=== PATIENT | female | born 1945 | race Hispanic/Latino ===

== ENCOUNTER 2016-06-28 11:48 | Day surgery (SDC) | payer MEDICARE, BC ==
[2016-06-24 13:03] VITALS: BMI 33.7
[2016-06-28 12:33] VITALS: TEMP 97.8
--- NOTE | 2016-06-28 12:38 | CP.SDSHP ---
Same Day Surgery H & P - History Proposed Procedure: thyroid Bx. Pre-Op Diagnosis: thyroid nodule. - Previous Medical/Surgical History Cardiac: Hypertension, Arrhythmia Pulmonary: Asthma Endocrine/Metabolic: Thyroid Disease, Diabetes, Obesity Pain: 0. No Pain Previous Surgical History: left knee replacement.hystrectomy,colonoscopy,bx thyroid nodule. - Allergies Allergies: Allergies diphenhydramine HCl [From Benadryl] Allergy (Verified 09/17/15 20:55) RASH - Physical Exam General Appearance: wnl. Vital Signs: Vital Signs 06/28/16 12:10 Temperature 97.8 F Pulse Rate 80 Respiratory 18 Rate Blood Pressure 174/72 H O2 Sat by Pulse 97 Oximetry Mental Status: Alert & Oriented x3 Neuro: WNL Heart: WNL Lungs: WNL GI: WNL - {Optional Preform as Required} Other Pertinent Findings: hyperlipidemia.dvt.sleep apnea. - Impression Impression: thyroid nodule. - Date & Time Date: 06/28/16 Time: 12:37 Short Stay Discharge - Short Stay Discharge Admitting Diagnosis/Reason for Visit: THYROID NODULE E04.9 Disposition: HOME/ ROUTINE Referrals: Dennis Deal MD [Primary Care Provider] -
[2016-06-28 12:43] LABS: ADD MANUAL DIFF? NO
[2016-06-28 12:45] LABS: BASO # 0.01 K/mm3 (0.0-2.0); BASO % 0.2 % (0.0-3.0); EOS # 0.1 (0.0-0.7); EOS % 1.2 % (1.5-5.0); GRAN # 2.93 (1.4-6.5); GRAN % 57.5 % (50.0-68.0); HEMATOCRIT 39.2 % (36.0-48.0); LYMPH # 1.7 (1.2-3.4); LYMPH % 33.4 % (22.0-35.0); MEAN CELL VOLUME 86.2 fL (80.0-105.0); MEAN CORPUSCULAR HEMOGLOBIN 30.3 pg (25.0-35.0); MEAN CORPUSCULAR HGB CONC 35.2 g/dl (31.0-37.0); MEAN PLATELET VOLUME 9.4 fl (7.0-11.0); MONO # 0.4 (0.1-0.6); MONO % 7.7 % (1.0-6.0); PLATELET COUNT 189 10^3/uL (120.0-450.0); RED CELL DISTRIBUTION WIDTH 12.3 % (11.5-14.5); WHITE BLOOD COUNT 5.1 10^3/ul (4.5-11.0)
[2016-06-28 12:57] LABS: INR 0.99 (0.93-1.08); PARTIAL THROMBOPLASTIN TIME 26.7 Seconds (23.7-30.8)
[2016-06-28 13:17] LABS: BLOOD UREA NITROGEN 25 mg/dL (7-21); CARBON DIOXIDE 28 mmol/L (21-33); CHLORIDE 99 mmol/L (98-107); GFR AFRICAN-AMERICAN > 60; GLUCOSE,RANDOM 101 mg/dL (70-110); POTASSIUM 3.6 mmol/L (3.6-5.0); SODIUM 139 mmol/L (132-148)
[2016-06-28] MEDS ORDERED: Midazolam 2 MG/2 ML VIAL ONE (14:16)
[2016-06-28 15:23] VITALS: PULSE 80
--- NOTE | 2016-06-28 15:25 | US ---
PROCEDURE: Ultrasound-guided right thyroid fine needle aspiration biopsy. CLINICAL HISTORY: Multiple small bilateral thyroid nodules. Dominant 2 cm right lower pole nodule. Evaluate for malignancy. PHYSICIAN(S): Davin Cook M.D. TECHNIQUE: The relative risks and indications for the procedure were explained to the patient and consent obtained. The patient was placed supine on the stretcher with the neck extended and preliminary sonography of the thyroid performed. This reveal 2.0 cm heterogeneous hypoechoic nodule in the lower aspect of the right thyroid. The neck was prepped and draped in the usual sterile fashion. Conscious sedation and monitoring were provided throughout the procedure by a nurse. 1% Xylocaine was used to anesthetize the skin and soft tissues at the access site. Three passes with a 22-gauge needle were performed under ultrasound guidance for fine needle aspiration of the 2 cm hypoechoic nodule in the right thyroid. The slides were reviewed by pathology and deemed adequate. The patient tolerated the procedure well. IMPRESSION: 1. Ultrasound guided fine needle aspiration of a 2 cm hypoechoicnodule in the right thyroid.
[2016-06-28 16:03] VITALS: BP 174/72; RESP 18; O2SAT 97
== END 2016-06-28 17:45 | disposition home or self-care (01) ==
LOC: SDS 11:48
PROVIDERS: ATTEND Radiology Vascular & Interventional Radiology
DX: E04.2 Nontoxic multinodular goiter (principal); I10 Essential (primary) hypertension; E11.9 Type 2 diabetes mellitus without complications; J45.909 Unspecified asthma, uncomplicated; E66.9 Obesity, unspecified; Z96.652 Presence of left artificial knee joint
CPT/HCPCS: 10022; 36415; 80048; 85025; 85610; 85730; 88173; 88305; J2250; J3010

== ENCOUNTER 2016-11-05 12:53 | Emergency (ER) | payer BC, MEDICARE ==
[2016-11-05 12:54] VITALS: BMI 33.7
== END 2016-11-05 13:38 | disposition left against medical advice (07) ==
LOC: ED 12:53
DX: Z02.89 Encounter for other administrative examinations (principal); M54.2 Cervicalgia